=== PATIENT | female | born 1930 | race Caucasian/White ===

== ENCOUNTER 2020-08-01 16:24 | Emergency (ER) | payer MEDICARE, OTHER | END 2020-08-01 17:19 | disposition home or self-care (01) | LOC: MADERS 16:24 | DX: L03.115 Cellulitis of right lower limb (principal); E78.5 Hyperlipidemia, unspecified; E11.9 Type 2 diabetes mellitus without complications; I10 Essential (primary) hypertension; Z79.899 Other long term (current) drug therapy | CPT/HCPCS: 99283 ==

== ENCOUNTER 2020-10-25 00:19 | Emergency (ER) | payer MEDICARE, OTHER ==
[2020-10-25] MEDS ORDERED: Acetaminophen 500 MG TAB ONE (00:54)
[2020-10-25] MEDS ORDERED: Sodium Chloride 0.9% 1,000 ML ONE (00:54)
[2020-10-25 01:12] LABS: Hemoglobin 10.5 g/dL (12.0-16.0); Mean Corpuscular HGB CONC 32.2 g/dL (32.0-36.0); Mean Corpuscular Hemoglobin 31.7 pg (27.0-31.0); Mean Corpuscular Volume 98.5 fL (78.0-98.0); Mean Platelet Volume 7.6 fL (7.4-10.4); Platelet Count 137 thou/uL (130-400); RBC Distribution Width 12.5 % (11.5-14.5); Red Blood Cell (RBC) Count 3.32 mill/uL (4.20-5.40); White Blood Cell (WBC) Count 8.3 thou/uL (4.8-10.8)
[2020-10-25 01:24] LABS: Lymphocytes 7 % (21-51); MDiff Complete? YES; Monocytes 5 % (0-10); Neutrophil 88 % (42-75); Platelet Morphology Comment Appears Adequate; RBC Morphology Normal
[2020-10-25 01:28] LABS: ALT (SGPT) 29 U/L (8-55); AST (SGOT) 31 U/L (5-34); Albumin 3.6 g/dL (3.4-4.8); Alkaline Phosphatase 87 U/L (40-110); Anion Gap 16 mmol/L (10-20); BUN (Urea Nitrogen) 21 mg/dL (9.8-20.1); CK (CPK) 44 U/L (29-168); Calc. Creatinine Clearance 0 mL/min (70-130); Calcium 8.6 mg/dL (7.8-10.44); Carbon Dioxide 24 mmol/L (23-31); Chloride 104 mmol/L (98-107); Globulin 2.8 g/dL (2.4-3.5); Glucose 187 mg/dL (83-110); Potassium 4.1 mmol/L (3.5-5.1); Protein, Total 6.4 g/dL (5.8-8.1); Sodium 140 mmol/L (136-145)
[2020-10-25 01:35] LABS: Bilirubin Negative (Negative); Blood, Urine Large (Negative); Clarity Cloudy (Clear); Glucose, Urine (Dipstick) Negative (Negative); Ketone, Urine Negative (Negative); Leukocyte Small (Negative); Nitrite Negative (Negative); Protein, Urine (Dipstick) > or equal to 300 mg/dL (Neg-Trace); Specific Gravity, Urine 1.025 (1.005-1.030); Urobilinogen 0.2 mg/dL (Less than 2)
[2020-10-25 01:39] LABS: WBC/HPF 21-50 HPF (0-3)
[2020-10-25 01:40] LABS: Bacteria/HPF 4+ HPF (None Seen); Mucous/LPF 2+ LPF (<2+)
[2020-10-25 02:32] LABS: SARS-CoV-2 NAA Rapid Test Not Detected (NotDetected)
[2020-10-25] MEDS ORDERED: cefTRIAXone\\ROCEPHIN 2 GM VIAL ONE (02:41)
[2020-10-25] MEDS ORDERED: HYDROcodone/Acetaminophen 5/325 mg Tablet PO PRN ×2 (04:51)
[2020-10-25] MEDS ORDERED: Acetaminophen 325 MG TAB PO PRN (04:51)
[2020-10-25] MEDS ORDERED: Ondansetron ODT 4 MG TAB PO PRN (04:52)
[2020-10-25] MEDS ORDERED: Sodium Chloride 0.9% 100 ML BAG ONE (06:57)
[2020-10-25] MEDS ORDERED: Famotidine 20 MG TAB PO SCH (09:00)
[2020-10-26] MEDS ORDERED: cefTRIAXone\\ROCEPHIN 2 GM in Sodium Chloride 0.9% 100 ML IVPB SCH (03:00)
== END 2020-10-25 03:03 | disposition critical access hospital (66) ==
LOC: MADERS 00:19
DX: S39.012A Strain of muscle, fascia and tendon of lower back, initial encounter (principal); S30.1XXA Contusion of abdominal wall, initial encounter; N30.00 Acute cystitis without hematuria; M25.551 Pain in right hip; R60.0 Localized edema; I27.20 Pulmonary hypertension, unspecified; E11.9 Type 2 diabetes mellitus without complications; E78.5 Hyperlipidemia, unspecified; I10 Essential (primary) hypertension; Z79.899 Other long term (current) drug therapy; Z79.84 Long term (current) use of oral hypoglycemic drugs; Z79.01 Long term (current) use of anticoagulants; W18.09XA Striking against other object with subsequent fall, initial encounter
CPT/HCPCS: 0240U; 70450; 71250; 72125; 74177; 80053; 81003; 81015; 82550; 83605; 85025; 87040; 87086; J0696; J7050

== ENCOUNTER 2020-10-25 02:56 | Inpatient (IN) | payer MEDICARE ==
[2020-10-25 04:29] VITALS: BMI 30.7
[2020-10-25] MEDS ORDERED: Acetaminophen 325 MG TAB PO PRN (05:09)
[2020-10-25] MEDS ORDERED: Ondansetron ODT 4 MG TAB PO PRN (05:10)
[2020-10-25] MEDS ORDERED: HYDROcodone/Acetaminophen 5/325 mg Tablet PO PRN ×3 (05:10→05:15)
[2020-10-25] MEDS: Famotidine 20 MG TAB PO SCH (08:44)
[2020-10-25] MEDS ORDERED: Senokot S 8.6-50 MG TAB PO PRN (09:59)
[2020-10-25] MEDS ORDERED: Nitroglycerin 0.4 MG TAB (25 Tab Bottle) SL PRN (10:00)
[2020-10-25] MEDS ORDERED: Dextrose 50% Abboject 50 ML SYRINGE SLOW IVP PRN (10:04)
[2020-10-25] MEDS: metFORMIN 500 MG TAB PO SCH (16:54)
[2020-10-25] MEDS: Atorvastatin Calcium 40 MG TAB PO SCH (20:02)
[2020-10-25] MEDS: Apixaban 5 MG TAB PO SCH (20:02)
[2020-10-25] MEDS: Fish Oil 1,000 MG CAP PO SCH (20:02)
[2020-10-25] MEDS: Amitriptyline HCl 25 MG TAB PO SCH (20:03)
[2020-10-25] MEDS: Sotalol HCl 80 MG TAB PO SCH (20:04)
[2020-10-25] MEDS: Lisinopril 10 MG TAB PO SCH (20:09)
[2020-10-26] MEDS ORDERED: cefTRIAXone\\ROCEPHIN 2 GM in Sodium Chloride 0.9% 100 ML IVPB SCH (03:00)
[2020-10-26 05:37] LABS: ALT (SGPT) 39 U/L (8-55); AST (SGOT) 31 U/L (5-34); Albumin 2.9 g/dL (3.4-4.8); Alkaline Phosphatase 82 U/L (40-110); Anion Gap 12 mmol/L (10-20); BUN (Urea Nitrogen) 15 mg/dL (9.8-20.1); Bilirubin, Total 0.9 mg/dL (0.2-1.2); Calc. Creatinine Clearance 65 mL/min (70-130); Calcium 8.4 mg/dL (7.8-10.44); Carbon Dioxide 25 mmol/L (23-31); Chloride 105 mmol/L (98-107); Globulin 2.8 g/dL (2.4-3.5); Glucose 145 mg/dL (83-110); Potassium 3.9 mmol/L (3.5-5.1); Protein, Total 5.7 g/dL (5.8-8.1); Sodium 138 mmol/L (136-145)
[2020-10-26 05:53] LABS: Band 1 % (5-11); Eosinophils 1 % (0-10); Hemoglobin 9.2 g/dL (12.0-16.0); Hypochromia SLIGHT = 6-15 cells (100X) (0-5/hpf); Lymphocytes 19 % (21-51); MDiff Complete? YES; Mean Corpuscular HGB CONC 33.1 g/dL (32.0-36.0); Mean Corpuscular Hemoglobin 32.2 pg (27.0-31.0); Mean Corpuscular Volume 97.1 fL (78.0-98.0); Mean Platelet Volume 7.4 fL (7.4-10.4); Monocytes 6 % (0-10); Neutrophil 73 % (42-75); Ovalocytes SLIGHT = 2-5 cells (100X) (0-1/hpf); Platelet Count 110 thou/uL (130-400); Platelet Morphology Comment Appears Decreased; RBC Distribution Width 12.5 % (11.5-14.5); Red Blood Cell (RBC) Count 2.86 mill/uL (4.20-5.40)
[2020-10-26] MEDS: metFORMIN 500 MG TAB PO SCH ×2 (08:35→17:12)
[2020-10-26] MEDS: Glimepiride 1 MG TAB PO SCH (08:35)
[2020-10-26] MEDS: Apixaban 5 MG TAB PO SCH ×2 (08:36→20:21)
[2020-10-26] MEDS: Lisinopril 10 MG TAB PO SCH ×2 (08:36→20:21)
[2020-10-26] MEDS: Magnesium Oxide 400 MG TAB PO SCH (08:36)
[2020-10-26] MEDS: Multivit, Therapeutic 1 TAB PO SCH (08:36)
[2020-10-26] MEDS: Sotalol HCl 80 MG TAB PO SCH ×2 (08:36→20:22)
[2020-10-26] MEDS: Famotidine 20 MG TAB PO SCH (08:36)
[2020-10-26] MEDS: Amlodipine 5 MG TAB PO SCH (08:36)
[2020-10-26] MEDS: Fish Oil 1,000 MG CAP PO SCH ×2 (08:36→20:21)
[2020-10-26] MEDS: Clopidogrel Bisulfate 75 MG TAB PO SCH (08:36)
[2020-10-26] MEDS: Vit A,C & E/Lutein/Minerals Tablet PO SCH (08:36)
[2020-10-26] MEDS: Atorvastatin Calcium 40 MG TAB PO SCH (20:21)
[2020-10-26] MEDS: Amitriptyline HCl 25 MG TAB PO SCH (20:21)
[2020-10-27] MEDS ORDERED: cefTRIAXone\\ROCEPHIN 1 GM VIAL IM SCH ×2 (06:00→09:00)
[2020-10-27] MEDS: Fish Oil 1,000 MG CAP PO SCH ×2 (08:45→21:02)
[2020-10-27] MEDS: Amlodipine 5 MG TAB PO SCH (08:45)
[2020-10-27] MEDS: Multivit, Therapeutic 1 TAB PO SCH (08:45)
[2020-10-27] MEDS: Vit A,C & E/Lutein/Minerals Tablet PO SCH (08:45)
[2020-10-27] MEDS: Clopidogrel Bisulfate 75 MG TAB PO SCH (08:45)
[2020-10-27] MEDS: Famotidine 20 MG TAB PO SCH (08:45)
[2020-10-27] MEDS: Apixaban 5 MG TAB PO SCH ×2 (08:45→21:05)
[2020-10-27] MEDS: Glimepiride 1 MG TAB PO SCH (08:45)
[2020-10-27] MEDS: Magnesium Oxide 400 MG TAB PO SCH (08:45)
[2020-10-27] MEDS: metFORMIN 500 MG TAB PO SCH ×2 (08:45→16:51)
[2020-10-27] MEDS: Sotalol HCl 80 MG TAB PO SCH ×2 (08:46→21:03)
[2020-10-27] MEDS: Lisinopril 10 MG TAB PO SCH ×2 (08:46→21:05)
[2020-10-27] MEDS ORDERED: cefTRIAXone\\ROCEPHIN 2 GM in Sodium Chloride 0.9% 100 ML IVPB SCH (10:00)
[2020-10-27] MEDS: Acetaminophen 500 MG TAB PO SCH (17:51)
[2020-10-27] MEDS: Atorvastatin Calcium 40 MG TAB PO SCH (21:03)
[2020-10-27] MEDS: Amitriptyline HCl 25 MG TAB PO SCH (21:04)
[2020-10-27] MEDS: Sulfameth/Trimethoprim DS 800-160mg TAB PO SCH (21:04)
[2020-10-28] MEDS: Acetaminophen 500 MG TAB PO SCH ×3 (00:33→12:07)
[2020-10-28] MEDS: Vit A,C & E/Lutein/Minerals Tablet PO SCH (08:20)
[2020-10-28] MEDS: Sotalol HCl 80 MG TAB PO SCH (08:21)
[2020-10-28] MEDS: Apixaban 5 MG TAB PO SCH (08:21)
[2020-10-28] MEDS: Fish Oil 1,000 MG CAP PO SCH (08:21)
[2020-10-28] MEDS: Famotidine 20 MG TAB PO SCH (08:21)
[2020-10-28] MEDS: Sulfameth/Trimethoprim DS 800-160mg TAB PO SCH (08:21)
[2020-10-28] MEDS: Glimepiride 1 MG TAB PO SCH (08:21)
[2020-10-28] MEDS: Amlodipine 5 MG TAB PO SCH (08:21)
[2020-10-28] MEDS: metFORMIN 500 MG TAB PO SCH (08:21)
[2020-10-28] MEDS: Clopidogrel Bisulfate 75 MG TAB PO SCH (08:22)
[2020-10-28] MEDS: Lisinopril 10 MG TAB PO SCH (08:22)
[2020-10-28] MEDS: Multivit, Therapeutic 1 TAB PO SCH (08:22)
[2020-10-28] MEDS: Magnesium Oxide 400 MG TAB PO SCH (08:22)
[2020-10-28 13:03] VITALS: BP 130/80; TEMP 97.8
== END 2020-10-28 14:26 | disposition home or self-care (01) | DRG 690 ==
LOC: MADMS 02:56
PROVIDERS: ADMIT Family Medicine; ATTEND Family Medicine
DX: N30.00 Acute cystitis without hematuria (principal); I25.10 Atherosclerotic heart disease of native coronary artery without angina pectoris; E11.22 Type 2 diabetes mellitus with diabetic chronic kidney disease; I12.9 Hypertensive chronic kidney disease with stage 1 through stage 4 chronic kidney disease, or unspecified chronic kidney disease; E78.5 Hyperlipidemia, unspecified; Z66 Do not resuscitate; I27.20 Pulmonary hypertension, unspecified; N18.30 Chronic kidney disease, stage 3 unspecified; G47.33 Obstructive sleep apnea (adult) (pediatric); E78.2 Mixed hyperlipidemia; S39.012A Strain of muscle, fascia and tendon of lower back, initial encounter; B96.20 Unspecified Escherichia coli [E. coli] as the cause of diseases classified elsewhere; W19.XXXA Unspecified fall, initial encounter; Z99.89 Dependence on other enabling machines and devices; Z95.5 Presence of coronary angioplasty implant and graft; Z79.84 Long term (current) use of oral hypoglycemic drugs; Z88.8 Allergy status to other drugs, medicaments and biological substances
CPT/HCPCS: 0240U; 36415; 36416; 51701; 70450; 71250; 72125; 74177; 80053; 81003; 81015; 82550; 83605; 85025; 87040; 87086; 96365; J0696; J3490; J7050